=== PATIENT | male | born 1985 | race Caucasian/White ===

== ENCOUNTER 2018-05-08 15:11 | Emergency (ER) | payer OTHER ==
[~2018-05-08] VITALS: Ht 180.3 cm; Wt 158.8 kg
[~2018-05-08 15:11] MED LIST: BACTRIM DS TAB1 EACH PO; BACTROBAN22 GM TP; ONDANSETRON HCL4 M3 PO
[2018-05-08] MEDS ORDERED: FISH OIL 1,001000 M2 PO (15:22)
[2018-05-08] MEDS ORDERED: CENTRUM SILVER1 EAC2 PO (15:22)
[2018-05-08] MEDS ORDERED: PERIDEX 0.12%473 M1 SWISH&SPIT (15:38)
[2018-05-08] MEDS ORDERED: KEFLEX500 M1 PO (15:38)
[2018-05-08] MEDS ORDERED: LIDOCAINE VISC100 ML SWISH&SPIT (15:38)
[2018-05-08] MEDS ORDERED: IBUPROFEN 800800 M1 PO (15:38)
[2018-05-08] MEDS ORDERED: ACETAMINOPHEN-1 EAC1 PO (15:38)
[2018-05-08 15:51] VITALS: BP 165/72
== END 2018-05-08 15:47 | disposition home or self-care (01) ==
LOC: M.ERS 15:11
DX: K08.89 Other specified disorders of teeth and supporting structures (principal); L53.9 Erythematous condition, unspecified

== ENCOUNTER 2018-09-19 16:38 | Emergency (ER) | payer OTHER ==
[~2018-09-19] VITALS: Ht 180.3 cm; Wt 131.5 kg
[~2018-09-19 16:38] MED LIST changes: +ACETAMINOPHEN-1 EAC1 PO; +CENTRUM SILVER1 EAC2 PO; +FISH OIL 1,001000 M2 PO; +IBUPROFEN 800800 M1 PO; +KEFLEX500 M1 PO; +LIDOCAINE VISC100 ML SWISH&SPIT; +PERIDEX 0.12%473 M1 SWISH&SPIT
[2018-09-19] MEDS ORDERED: ACETAMINOPHEN-1 EAC1 PO (17:36)
[2018-09-19] MEDS ORDERED: BACTRIM DS TAB1 EACH PO (17:36)
[2018-09-19] MEDS ORDERED: KEFLEX500 M1 PO (17:36)
[2018-09-19 17:39] VITALS: BP 134/80
== END 2018-09-19 17:40 | disposition home or self-care (01) ==
LOC: M.ERS 16:38
DX: S60.511A Abrasion of right hand, initial encounter (principal); M79.641 Pain in right hand; L03.113 Cellulitis of right upper limb; W18.39XA Other fall on same level, initial encounter; Y93.89 Activity, other specified; Y92.89 Other specified places as the place of occurrence of the external cause; Y99.8 Other external cause status